=== PATIENT | female | born 1970 | race Hispanic/Latino ===

== ENCOUNTER 2021-04-16 11:34 | Emergency (ER) | payer SELFPAY ==
--- NOTE | ~2021-04-16 | XR_ITS ---
EXAMINATION: XR shoulder LT min 2V DATE: 04/16/2021 12:32 INDICATION: Left shoulder pain. TECHNIQUE: 4 views of left shoulder were obtained. COMPARISON: None. FINDINGS: Bone alignment is normal. No fracture. There is mild osteoarthritis of glenohumeral joint a nd acromioclavicular joint. IMPRESSION: 1. Mild polyarticular osteoarthritis. Reviewed, dictated and finalized at location A.
[2021-04-16 11:53] VITALS: BP 124/74; PULSE 90; RESP 17; TEMP 36.8; O2SAT 98
--- NOTE | 2021-04-16 13:16 | ED.UPPEXIN ---
HPI - Extremity Injury (Upper) General Chief Complaint: Extremity Injury, Upper Stated Complaint: shoulder pain Time Seen by Provider: 04/16/21 12:07 Source: patient and family Mode of arrival: ambulatory Limitations: language barrier History of Present Illness HPI narrative: 50-year-old female here with complaints of left shoulder neck pain for past several months. Patient son who is the educational interpreter tells me that he is she has seen chiropractor several time for the same. She denies any trauma no history of fever or chills complaint: injury to: shoulder Onset (ago): year(s) (1) Other injuries: none Exacerbating factors: movement of extremity Related Data Home Medications Medication Instructions Recorded Confirmed acetaminophen [Tylenol] 04/16/21 04/16/21 Allergies Allergy/AdvReac Type Severity Reaction Status Date / Time No Known Allergies Allergy Unverified 05/20/18 17:58 Review of Systems Review of Systems: All systems reviewed & are unremarkable except as noted in HPI and below Constitutional: Constitutional: Reports no additional constitutional complaints Eyes: Eyes: Reports no additional eye complaints ENT: Reports system reviewed and no additional complaints, except as documented Cardiovascular: Cardiovascular: Reports no additional cardiovascular complaints Respiratory: Respiratory: Reports no additional respiratory complaints Gastrointestinal: Gastrointestinal: Reports no additional gastrointestinal complaints Musculoskeletal: Musculoskeletal: Reports as per HPI Integumentary/Breasts: Skin/Breast: Reports system reviewed and no additional complaints, except as docu Exam Narrative: GENERAL: Well-appearing, well-nourished, and in no acute distress. HEAD: Normocephalic, atraumatic. EYES: PERRLA and EOMI.. NECK: Supple. CHEST: Clear to auscultation. No respiratory distress. HEART: Regular rate and rhythm. No murmur heard. Normal peripheral pulses. EXTREMITIES: pain ful ROM of the left shoulder , no deformity SKIN: Warm, dry, no rash. NEURO: No focal deficits. Alert and oriented x3. PSYCH: Normal mood and affect. Course Course Emergency Course: Inform the son who is the main clinical account specialist about the x-ray findings. Advised her to take pain medications as prescribed., With orthopedic doctor. Vital Signs Vital signs: Vital Signs Temperature 36.8 C 04/16/21 11:53 Pulse Rate 90 04/16/21 11:53 Respiratory Rate 17 04/16/21 11:53 Blood Pressure 124/74 04/16/21 11:53 Pulse Oximetry 98 04/16/21 11:53 Temperature 36.8 C 04/16/21 11:53 Pulse Rate 90 04/16/21 11:53 Respiratory Rate 17 04/16/21 11:53 Blood Pressure 124/74 04/16/21 11:53 Pulse Oximetry 98 04/16/21 11:53 Discharge Plan Discharge Clinical Impression: Arthralgia Qualifiers: Joint pain location: shoulder Laterality: left Qualified Code(s): M25.512 - Pain in left shoulder Patient Disposition: Home, Self-Care Condition: Stable Instructions: Antibiotic Form, Arthritis (ED) Additional Instructions: take medications as presceried , follow with Orthopedics in the next few days. Patient Language: Uzbek Prescriptions: New meloxicam [Mobic] 7.5 mg tablet 7.5 mg PO DAILY Qty: 30 RF: 0 No Action acetaminophen [Tylenol] 325 mg Capsule RF: 0 Follow-up/Referrals: Keyur Slaughter MD [Physician] - PHYSICIAN,PATTERN WORKER [Primary Care Provider] - Time of Disposition: 13:19
[2021-04-16 13:35] VITALS: BP 116/75; PULSE 78; RESP 15; O2SAT 100
== END 2021-04-16 13:36 | disposition home or self-care (01) ==
PROVIDERS: Emergency Provider Family Medicine
DX: M25.512 Pain in left shoulder (principal)
CPT/HCPCS: 73030; 99283

== ENCOUNTER 2022-06-16 20:03 | Emergency (ER) | payer MEDICAID, SELFPAY ==
--- NOTE | ~2022-06-16 | XR_ITS ---
EXAM: XR shoulder LT min 2V DATE: 06/16/2022 20:52 HISTORY: INNJURY/PAIN;worsening Lt shoulder pain; no recent injury . COMPARISON: 04/16/2021. FINDINGS: Decreased mineralization. No fracture or dislocation. No lytic or blastic lesion. Mild AC joint and glenohumeral joint osteoarthritis. No erosion or periosteal change. Soft tissues within nor mal limits. IMPRESSION: No acute osseous finding in the left shoulder. Reviewed, dictated and finalized at location K. COURSE ASSISTANT
--- NOTE | ~2022-06-16 | XR_ITS ---
EXAM: XR_CERV2-3V_CR DATE: 06/16/2022 20:53 HISTORY: left neck pain;worsening Lt shoulder pain, radiating into el . COMPARISON: None available. FINDINGS: Decreased mineralization. Craniocervical association and atlantoaxial joint are aligned. No prevertebral soft tissue swelling. Vertebral bodies are aligned. Vertebral body heights are maintain ed. Mild degenerative disc disease at C5-6. Mild multilevel facet arthropathy. IMPRESSION: No acute fracture or traumatic malalignment detected in the cervical spine. Reviewed, dictated and finalized at location K. IC TANK SETTER IMPRESSION: No acute fracture or traumatic malalignment detected in the cervica l spine.
--- NOTE | ~2022-06-16 | XR_ITS ---
EXAM: XR elbow LT min 3V DATE: 06/16/2022 20:53 HISTORY: pain,worsening Lt shoulder pain, radiating into elbow/neck . COMPARISON: None available. FINDINGS: Decreased mineralization. No fracture or dislocation. No lytic or blastic lesion. Joint sp aces are maintained. No erosion or periosteal change. Soft tissues within normal limits. IMPRESSION: No acute osseous finding in the left elbow. Reviewed, dictated and finalized at location K. IAL TAX AUDITOR
[2022-06-16 20:04] VITALS: BP 149/88; PULSE 86; RESP 18; TEMP 37.2; O2SAT 99
--- NOTE | 2022-06-16 20:28 | ECG_ITS ---
Measurements Intervals [place] Rate: 80 P: 33 ND: 149 QRS: 44 QRSD: 71 T: 57 QT: 365 QTc: 421 Interpretive Statements SINUS RHYTHM NO PREVIOUS ECG AVAILABLE FOR COMPARISON Electronically Signed On 06-17-2022 11:16:16 MANUFACTURING ACCOUNTANT by Génesis Lujan M.D.
--- NOTE | 2022-06-16 20:29 | ED.GENADULT ---
HPI - General Adult General Chief complaint: Extremity Injury, Upper Stated complaint: left shoulder pain Time Seen by Provider: 06/16/22 20:23 History of Present Illness HPI narrative: Patient 51-year-old female who presents emergency department with chief complaint of left shoulder neck and elbow pain. Patient reports that for approximately 2 years she has been having pain in the left side of her neck and left shoulder the patient states it also goes to the elbow. The patient states the pain is worse with range of motion and reports that yesterday at work she lifted something heavy that exacerbated the pain. Related Data Home Medications Medication Instructions Recorded Confirmed acetaminophen 325 mg capsule 04/16/21 04/17/21 (Tylenol) Allergies Allergy/AdvReac Type Severity Reaction Status Date / Time No Known Allergies Allergy Verified 06/16/22 20:08 Review of Systems Review of Systems: A 10 system review of systems was completed on the patient and is negative except for what is stated in the HPI. Nursing and ancillary documentation was reviewed. [facility] Past Medical History Medical History Adhesive capsulitis of left shoulder Social History Social History Smoking status: Never smoker Exam Narrative: GENERAL: Well-appearing, well-nourished, and in no acute distress. HEAD: Normocephalic, atraumatic. EYES: PERRLA and EOMI. ENT: Nares clear, no rhinorrhea or epistaxis. Mucous membranes moist. NECK: Supple. There is tenderness to palpation in the paraspinous muscles of the left neck CHEST: Clear to auscultation. No respiratory distress. HEART: Regular rate and rhythm. No murmur heard. Normal peripheral pulses. ABDOMEN: Soft, nontender, nondistended, normal active bowel sounds. EXTREMITIES: Normal range of motion. No edema. There is tenderness in the left shoulder and pain with range of motion. SKIN: Warm, dry, no rash. NEURO: No focal deficits. Alert and oriented x3. PSYCH: Normal mood and affect. Course Course Emergency Course: EKG is sinus rhythm rate of [address] elevation or ST depression Vital Signs Vital signs: Vital Signs Temperature 37.2 C 06/16/22 20:04 Pulse Rate 86 06/16/22 20:04 Respiratory Rate 18 06/16/22 20:04 Blood Pressure 149/88 H 06/16/22 20:04 Pulse Oximetry 99 06/16/22 20:04 Oxygen Delivery Room Air 06/16/22 20:04 Temperature 37.2 C 06/16/22 20:04 Pulse Rate 86 06/16/22 20:04 Respiratory Rate 18 06/16/22 20:04 Blood Pressure 149/88 H 06/16/22 20:04 Pulse Oximetry 99 06/16/22 20:04 Oxygen Delivery Room Air 06/16/22 20:04 Medical Decision Making Vital Signs Vital Signs: Vital Signs Temperature 37.2 C 06/16/22 20:04 Pulse Rate 86 06/16/22 20:04 Respiratory Rate 18 06/16/22 20:04 Blood Pressure 149/88 H 06/16/22 20:04 Pulse Oximetry 99 06/16/22 20:04 Oxygen Delivery Room Air 06/16/22 20:04 Temperature 37.2 C 06/16/22 20:04 Pulse Rate 86 06/16/22 20:04 Respiratory Rate 18 06/16/22 20:04 Blood Pressure 149/88 H 06/16/22 20:04 Pulse Oximetry 99 06/16/22 20:04 Oxygen Delivery Room Air 06/16/22 20:04 Discharge Plan Discharge Clinical Impression: Acute pain of left shoulder Patient Disposition: Home, Self-Care Condition: Stable Instructions: Antibiotic Form, Shoulder Pain (ED) Patient Language: Uzbek Prescriptions: New meloxicam 15 mg tablet 15 mg PO DAILY Qty: 14 0RF cyclobenzaprine 10 mg tablet 10 mg PO TID PRN (Reason: muscle spasm) Qty: 21 0RF No Action acetaminophen [Tylenol] 325 mg Capsule meloxicam [Mobic] 7.5 mg tablet 7.5 mg PO DAILY Qty: 30 0RF Follow-up/Referrals: PHYSICIAN,DIETARY SERVICE AIDE [Primary Care Provider] - Cruz Ivory MD [Physician] - Time of Disposition: 21:18
[2022-06-16] MEDS: KETOROLAC 30 MG/ML VIAL (*BKC) IM (21:07)
[2022-06-16] MEDS: ORPHENADRINE CITRATE 100 MG TABLET.ER PO (21:08)
== END 2022-06-16 21:34 | disposition home or self-care (01) ==
PROVIDERS: Emergency Provider Emergency Medicine
DX: M25.512 Pain in left shoulder (principal)
CPT/HCPCS: 72040; 73030; 73080; 93005; 96372; 99284; A9270; J1885

== ENCOUNTER 2023-10-27 12:02 | Emergency (ER) | payer OTHER, SELFPAY ==
--- NOTE | ~2023-10-27 | XR_ITS ---
Right Hand Technique: PA, oblique, and lateral views were obtained. Clinical History: Dog bite Findings: No acute fracture or dislocation is seen. Osseous alignment is anatomic. Joint spaces are p reserved. Soft tissues are unremarkable. Impression: Unremarkable right hand. Reviewed, dictated and finalized at location M. Impression: Unremarkable right hand.
[2023-10-27 12:52] VITALS: BP 112/69; PULSE 90; RESP 16; TEMP 35.7; O2SAT 96
--- NOTE | 2023-10-27 15:39 | ED.ANIMALBIT ---
HPI - Animal Bite General Chief Complaint: Animal Bite Stated Complaint: animal bite Time Seen by Provider: 10/27/23 15:40 Source: patient Mode of arrival: EMS Limitations: no limitations and language barrier History of Present Illness HPI narrative: Patient is a 52-year-old female who presents the ED via EMS with report of a dog bite to her right hand. Patient is Sinhala speaking. [id number] interpreter deaf that was utilized for assistance with interpretation. Reports bitten by her neighbor's dog on her R5th digit. States the dog escaped as she was walking by her neighbor's fence. C/o pain to digit and entire R hand. Dogs with unknown vaccination status, however patient states she has seen the dog be territorial and unfriendly in the past. Patient states she filed a police report against the neighbor/dog. Tetanus unknown. Denies any other injuries. Denies numbness. Related Data Home Medications Medication Instructions Recorded Confirmed acetaminophen 325 mg capsule 04/16/21 04/17/21 (Tylenol) Allergies Allergy/AdvReac Type Severity Reaction Status Date / Time No Known Allergies Allergy Verified 06/16/22 20:08 Review of Systems Review of Systems: CONSTITUTIONAL: Denies fever, chills, or sweats. SKIN: See HPI MUSCULOSKELETAL: see HPI NEUROLOGIC: Denies headache, dizziness, numbness, or weakness. All systems reviewed & are unremarkable except as noted in HPI and below PMFSH Past Medical History Medical History Adhesive capsulitis of left shoulder Social History Social History Smoking status: Never smoker Exam Narrative: GENERAL: Well appearing, thin, non-toxic, in no acute distress. HEAD: Normocephalic, atraumatic. RESPIRATORY: Airway patent, respirations nonlabored. CARDIOVASCULAR: Regular rate and rhythm. Radial pulses easily palpable MUSCULOSKELETAL: Moves all extremities. No gross deformities. SKIN: Warm, dry, normal color. Two puncture wounds to R 5th digit extensor surface. 1 puncture wound to flexor surface of digit medially/proximally, no active bleeding. Tenderness surrounding puncture wounds. Mild tenderness noted to 4th digit as well, no appreciable wounds. Sensation intact. Capillary refill <2sec to fingers. NEURO: A&O X3. Speech clear. PSYCHIATRIC: Appropriate mood and affect. Normal interaction. Course Vital Signs Vital signs: Vital Signs Temperature 96.2 F L 10/27/23 12:52 Pulse Rate 90 10/27/23 12:52 Respiratory Rate 16 10/27/23 12:52 Blood Pressure 112/69 10/27/23 12:52 Pulse Oximetry 96 10/27/23 12:52 Temperature 96.2 F L 10/27/23 12:52 Pulse Rate 90 10/27/23 12:52 Respiratory Rate 16 10/27/23 12:52 Blood Pressure 112/69 10/27/23 12:52 Pulse Oximetry 96 10/27/23 12:52 MDM - Animal Bite MDM Narrative Medical decision making narrative: X-ray negative for osseous abnormality, foreign body. Puncture wounds very small, do not require repair. Wounds were thoroughly irrigated and bandaged. Tetanus updated. No indication for rabies vaccine, patient states dog was not acting rabid, escaped out of fence. Patient will be started on abx for dog bite prophylaxis. Given 1st dose of Augmentin in the ED. Will also send in prescription for pain medication. Advised patient have close follow-up with primary care doctor. Will also provide hand surgery information for follow-up if needed. Discussed strict return precautions, including signs and symptoms of infection. Patient voiced understanding. Discharged in stable condition. Given work note. Medical Records Attestation: I reviewed the patient's medical records. Imaging Data Attestation: I personally reviewed and interpreted this imaging study as follows: Radiologist's impression: ITS Impressions Hand X-Ray 10/27/23 12:45 Impression: Unremarkable right hand.
[2023-10-27] MEDS: HYDROcodone/acetaminophen (*CRX) 5-325 MG TABLET 1 TAB PO (16:08)
[2023-10-27] MEDS: AMOXICILLIN/CLAVULANATE K 875-125 MG TAB 1 TABLET PO (16:08)
[2023-10-27] MEDS: TETANUS,DIPHTHERIA,AC PERTUSSIS ADULT (0.5 ML) BOOSTRIX IM (16:08)
== END 2023-10-27 16:55 | disposition home or self-care (01) ==
LOC: ANHED 16:37
PROVIDERS: Emergency Provider Physician Assistant; Referring Provider Emergency Medicine
DX: S61.256A Open bite of right little finger without damage to nail, initial encounter (principal); Z23 Encounter for immunization; W54.0XXA Bitten by dog, initial encounter
CPT/HCPCS: 73130; 90471; 90715; 99283; A9270

== ENCOUNTER 2023-10-31 14:49 | Emergency (ER) | payer OTHER, SELFPAY ==
[2023-10-31 14:51] VITALS: BP 129/75; PULSE 73; RESP 18; TEMP 36.5; O2SAT 99
[2023-10-31 17:23] LABS: Basophils Percent Auto 0.5 % (0.2-1.2); Eosinophils Absolute Auto 0.3 K/mm3 (0-0.3); Eosinophils Percent Auto 4.2 % (0-4.4); Hematocrit 37.8 % (37.0-47.0); Hemoglobin 12.7 g/dL (12.0-15.0); Immature Granulocyte Absolute 0.01 K/mm3 (0.00-0.031); Immature Granulocyte Percent A 0.2 % (0-0.5); Lymphocytes Absolute Auto 1.86 K/mm3 (0.9-3.2); Lymphocytes Percent Auto 31.4 % (18.3-44.2); Mean Corpuscular HGB Conc 33.6 g/dl (32-36); Mean Corpuscular Hemoglobin 30.1 pg (26-34); Mean Corpuscular Volume 89.6 fl (80-100); Mean Platelet Volume 11.8 fl (7.4-10.4); Monocytes Absolute Auto 0.5 K/mm3 (0.1-0.6); Monocytes Percent Auto 8.1 % (2.6-8.5); Neutrophils Absolute Auto 3.3 K/mm3 (1.3-6.7); Neutrophils Percent Auto 55.6 % (45.5-73.1); Platelet Count Result 228 k/mm3 (150-375); Red Blood Count 4.22 M/mm3 (4.2-5.4); Red Cell Distribution Width 12.7 % (11.5-14.5); White Blood Count 5.9 K/mm3 (4.5-10.0)
[2023-10-31 17:35] LABS: Lactic Acid Reflex 1.3 mmol/L (0.7-2.0)
[2023-10-31 17:36] LABS: Anion Gap 5 mmol/L (4-12); Blood Urea Nitrogen 14 mg/dL (7-17); CRP < 0.5 mg/dL (<1.0); Calcium 9.3 mg/dL (8.4-10.2); Carbon Dioxide 30 mmol/L (22-30); Chloride 102 mmol/L (98-107); Estimated Glomerular Filt Rate > 60; Glucose 341 mg/dL (65-110); Potassium 4.3 mmol/L (3.4-5.0); Sodium 137 mmol/L (137-145)
--- NOTE | 2023-10-31 17:41 | ED_ITS ---
HPI - Extremity Injury (Upper) General Chief Complaint: Extremity Injury, Upper Stated Complaint: possible infection to hand after dog bite Time Seen by Provider: 10/31/23 16:57 Source: patient and old records reviewed Mode of arrival: ambulatory Limitations: no limitations and language barrier History of Present Illness HPI narrative: Patient is a 52-year-old female, with pmh of DM, who presents the ED with conc whitney for infection to right hand. Patient is Peruvian-speaking. [employer] human resources operations director was utilized for assistance with translation. Patient was seen in the ED here on Friday for a dog bite of her right 5th digit. She was started on Augmentin at that time and has been taking this as prescribed. She has 3 doses left. She followed up with her primary care doctor today and was concerned for infection, referred here for further evaluation. Patient reports persistent pain in right hand, but denies fevers, drainage, redness, warmth, numbness, tingling. Related Data Home Medications Medication Instructions Recorded Confirmed acetaminophen 325 mg capsule 04/16/21 04/17/21 (Tylenol) Allergies Allergy/AdvReac Type Severity Reaction Status Date / Time No Known Allergies Allergy Verified 06/16/22 20:08 Review of Systems Review of Systems: CONSTITUTIONAL: Denies fever, chills, or sweats. MUSCULOSKELETAL: See HPI. NEUROLOGIC: Denies headache, dizziness, numbness, or weakness. All systems reviewed & are unremarkable except as noted in HPI and below PMFSH Past Medical History Medical History (Updated 10/31/23 @ 17:51 by Lurdes Ridley PA-C) Adhesive capsulitis of left shoulder Diabetes mellitus Social History Social History Smoking status: Never smoker Exam Narrative: GENERAL: Well appearing, thin/petite, non-toxic, in no acute distress. HEAD: Normocephalic, atraumatic. RESPIRATORY: Airway patent, respirations nonlabored. CARDIOVASCULAR: Regular rate and rhythm without murmurs, rubs, or gallops. Radial pulses 2+ MUSCULOSKELETAL: Moves all extremities. No gross deformities. TTP throughout R 4th/5th digits, but no appreciable swelling, warmth, erythema of hand/fingers. No lymphangitis. SKIN: Warm, dry, normal color. Healing scabbed puncture wounds to R 5th digit, no drainage or surrounding inflammation. NEURO: A&O X3. Speech clear. PSYCHIATRIC: Appropriate mood and affect. Normal interaction. Course Vital Signs Vital signs: Vital Signs Temperature 97.7 F 10/31/23 14:51 Pulse Rate 73 10/31/23 14:51 Respiratory Rate 18 10/31/23 14:51 Blood Pressure 129/75 10/31/23 14:51 Pulse Oximetry 99 10/31/23 14:51 Oxygen Delivery Room Air 10/31/23 14:51 Temperature 97.7 F 10/31/23 14:51 Pulse Rate 73 10/31/23 14:51 Respiratory Rate 18 10/31/23 14:51 Blood Pressure 129/75 10/31/23 14:51 Pulse Oximetry 99 10/31/23 14:51 Oxygen Delivery Room Air 10/31/23 14:51 MDM - Extremity Injury (Upper) MDM Narrative Medical decision making narrative: Patient presented to ED several days s/p dog bite to R 5th digit, concerned for infection, on augmentin, has 3 doses left. Vitals are stable. Patient afebrile. No systemic signs of infection. Laboratory studies were obtained and reassuring. No leukocytosis. Normal inflammatory markers. Lactic acid within normal limits. Blood glucose is moderately elevated. Patient has been adjusting DM medications with PCP. Hand overall looks well, I am not concerned for infection, do not feel patient needs IV antibiotics. Advised patient to continue oral antibiotics and have continued follow-up with primary care doctor. She has a follow-up appointment on Friday. Advised patient to continue Tylenol and ibuprofen as needed for pain. Patient was also referred to Hand surgery and advised patient to make appointment if she has further concerns. Given return precautions. Discharged in stable condition. Medical Records Attestation: I reviewed the patient's medical records. Lab Data Attestation: I reviewed the patient's lab results. 10/31/23 17:17 10/31/23 17:17 Labs: Lab Results 10/31/23 Range/Units 17:17 WBC 5.9 (4.5-10.0) K/mm3 RBC 4.22 (4.2-5.4) M/mm3 Hgb 12.7 (12.0-15.0) g/dL Hct 37.8 (37.0-47.0) % MCV 89.6 (80-100) fl MCH 30.1 (26-34) pg MCHC 33.6 (32-36) g/dl RDW 12.7 (11.5-14.5) % Plt Count 228 (150-375) k/mm3 MPV 11.8 H (7.4-10.4) fl Immature Gran % (Auto) 0.2 (0-0.5) % Neut % (Auto) 55.6 (45.5-73.1) % Lymph % (Auto) 31.4 (18.3-44.2) % [place] % (Auto) 8.1 (2.6-8.5) % Eos % (Auto) 4.2 (0-4.4) % Baso % (Auto) 0.5 (0.2-1.2) % Lymph # (Auto) 1.86 (0.9-3.2) K/mm3 [place] # (Auto) 0.5 (0.1-0.6) K/mm3 Eos # (Auto) 0.3 (0-0.3) K/mm3 Baso # (Auto) 0.0 (0.0-0.1) K/mm3 Abs Immat Gran (auto) 0.01 (0.00-0.031) K/mm3 Absolute Neuts (auto) 3.3 (1.3-6.7) K/mm3 Absolute Nucleated RBC 0.000 (0.0-0.012) K/mm3 Nucleated RBC % 0.0 (0.0-0.2) % ESR 14 (0-20) mm/hr Sodium 137 (137-145) mmol/L Potassium 4.3 (3.4-5.0) mmol/L Chloride 102 (98-107) mmol/L Carbon Dioxide 30 (22-30) mmol/L Anion Gap 5 (4-12) mmol/L BUN 14 (7-17) mg/dL Creatinine 0.40 L (0.7-1.0) mg/dL Estim Creat Clear Calc Not Reportable Estimated GFR > 60 (59 - ) Glucose 341 H (65-110) mg/dL Lactic Acid 1.3 (0.7-2.0) mmol/L Calcium 9.3 (8.4-10.2) mg/dL C-Reactive Protein < 0.5 (<1.0) mg/dL Discharge Plan Discharge Clinical Impression: Dog bite of multiple sites of right hand and fingers Qualifiers: Encounter type: subsequent encounter Qualified Code(s): S61.451D - Open bite of right hand, subsequent encounter Uncontrolled diabetes mellitus Qualifiers: Diabetes mellitus type: type 2 Glycemic state: with hyperglycemia Qualified Code(s): E11.65 - Type 2 diabetes mellitus with hyperglycemia Patient Disposition: Home, Self-Care Condition: Stable Instructions: Antibiotic Form, Animal Bite (ED), Type 2 Diabetes Management for Adults (ED) Additional Instructions: Finish your antibiotics as prescribed. Continue Tylenol and ibuprofen for pain. Continue to follow-up with your primary care doctor. You have also been referred to Hand surgery and you may call the office to make an appointment. Continue your diabetic medications as prescribed. Return to the ED if you experience severe pain or swelling in hands, drainage from finger, persistent fevers, or any other symptoms of concern. Prescriptions: No Action acetaminophen [Tylenol] 325 mg Capsule meloxicam [Mobic] 7.5 mg tablet 7.5 mg PO DAILY Qty: 30 0RF meloxicam 15 mg tablet 15 mg PO DAILY Qty: 14 0RF cyclobenzaprine 10 mg tablet 10 mg PO TID PRN (Reason: muscle spasm) Qty: 21 0RF amoxicillin-pot clavulanate 875-125 mg tablet 1 tablet PO Q12H 7 Days Qty: 14 0RF hydrocodone-acetaminophen 5-325 mg tablet 1 tablet PO Q6H PRN (Reason: pain) Qty: 5 0RF Follow-up/Referrals: Adarsh Good MD [Physician] - (HAND SURGERY) UNKNOWN,DOCTOR [Primary Care Provider] - Time of Disposition: 17:50
[2023-10-31 18:02] LABS: Erythrocyte Sedimentation Rate 14 mm/hr (0-20)
== END 2023-10-31 18:11 | disposition home or self-care (01) ==
PROVIDERS: Emergency Provider Physician Assistant
DX: S61.451D Open bite of right hand, subsequent encounter (principal); E11.65 Type 2 diabetes mellitus with hyperglycemia; W54.0XXD Bitten by dog, subsequent encounter
CPT/HCPCS: 36415; 80048; 83605; 85025; 85652; 86140; 99283

== ENCOUNTER 2023-11-09 11:01 | Emergency (ER) | payer OTHER, SELFPAY ==
--- NOTE | ~2023-11-09 | XR_ITS ---
XR shoulder RT min 2V DATE: 11/09/2023 11:56 INDICATION: Right shoulder pain following dog bite 2 weeks ago TECHNIQUE: 4 views COMPARISON: None FINDINGS: No fracture or dislocation, periosteal reaction or bone destruction. Mild degenerative velazco ge at the right acromioclavicular joint. IMPRESSION: No fracture or dislocation Mild degenerative change at right acromioclavicular joint Reviewed, dictated and finalized at location A.
--- NOTE | ~2023-11-09 | XR_ITS ---
XR cervical spine 4-5V DATE: 11/09/2023 11:56 INDICATION: Right neck pain TECHNIQUE: AP, open-mouth, lateral, swimmer views COMPARISON: 06/16/2022 cervical spine FINDINGS: There is straightening of the cervical spine. C1 and C2 are normally aligned and the odontoid process is intact. No fracture or dislocation or lock ed facet or prevertebral soft tissue swelling. Cervical interspaces appear well preserved. IMPRESSION: No significant abnormality Reviewed, dictated and finalized at location A. IMPRESSION: No significant abnormality
[2023-11-09 11:06] VITALS: BP 125/76; PULSE 80; RESP 18; TEMP 36.4; O2SAT 99
--- NOTE | 2023-11-09 11:39 | ED.ANIMALBIT ---
HPI - Animal Bite General Chief Complaint: Animal Bite Stated Complaint: labs and imaging request Time Seen by Provider: 11/09/23 11:03 Source: patient Mode of arrival: ambulatory Limitations: no limitations History of Present Illness HPI narrative: Patient is a 52-year-old female who presents to the ED with report of right-sided neck and arm arm pain. Patient is primarily Syrian-speaking. Jiglu interpreter and translator utilized for assistance with translation. Patient reports she was bit by a dog in her right hand a few weeks ago. She has been seen in the ED several times for this incident. She complains of persistent pain throughout her right arm, right shoulder, right neck. States she feels as though she strain her arm trying to fight off the dog. She states she was sent here by her PCP today to have labs and imaging performed. She presents with outpatient lab and x-ray orders. Patient denies numbness or tingling. Denies chest pain or shortness of breath. She has not been taking anything for the pain. Related Data Home Medications Medication Instructions Recorded Confirmed acetaminophen 325 mg capsule 04/16/21 04/17/21 (Tylenol) Allergies Allergy/AdvReac Type Severity Reaction Status Date / Time No Known Allergies Allergy Verified 06/16/22 20:08 Review of Systems Review of Systems: CONSTITUTIONAL: Denies fever, chills, or sweats. CARDIOVASCULAR: Denies chest prasad. RESPIRATORY: Denies dyspnea. MUSCULOSKELETAL: See HPI. NEUROLOGIC: Denies headache, dizziness, numbness, or weakness. All systems reviewed & are unremarkable except as noted in HPI and below PMFSH Past Medical History Medical History Adhesive capsulitis of left shoulder Diabetes mellitus Social History Social History Smoking status: Never smoker Exam Narrative: GENERAL: Well appearing, thin, non-toxic, in no acute distress. HEAD: Normocephalic, atraumatic. NECK: No midline spinal tenderness. Minimal TTP to R paraspinal musculature into right upper trapezius region. Neck is supple, full range of motion. RESPIRATORY: Airway patent, respirations nonlabored. CARDIOVASCULAR: Regular rate and rhythm without murmurs, rubs, or gallops. Radial pulses 2+ MUSCULOSKELETAL: Moves all extremities. No gross deformities. Full range of motion of upper extremities bilaterally. Sensation intact throughout upper extremities. No appreciable tenderness throughout R shoulder joint, R upper arm, R forearm. Minimal tenderness over the 5th MCP region in area of previous dog bite. SKIN: Warm, dry, normal color. NEURO: A&O X3. Speech clear. Cranial nerves II-XII grossly intact. Steady gait. No ataxic movements. PSYCHIATRIC: Appropriate mood and affect. Normal interaction. Course Vital Signs Vital signs: Vital Signs Temperature 97.6 F 11/09/23 11:06 Pulse Rate 80 11/09/23 11:06 Respiratory Rate 18 11/09/23 11:06 Blood Pressure 125/76 11/09/23 11:06 Pulse Oximetry 99 11/09/23 11:06 Oxygen Delivery Room Air 11/09/23 11:06 Temperature 97.6 F 11/09/23 11:06 Pulse Rate 80 11/09/23 11:06 Respiratory Rate 18 11/09/23 11:06 Blood Pressure 125/76 11/09/23 11:06 Pulse Oximetry 99 11/09/23 11:06 Oxygen Delivery Room Air 11/09/23 11:06 MDM - Animal Bite MDM Narrative Medical decision making narrative: Patient presented to ED with right-sided neck/shoulder/arm pain status post dog bite a few weeks ago. Vital signs are stable. Neurologically intact. No significant abnormalities noted on exam. Paraspinal muscle tenderness noted throughout right cervical region. No midline spinal tenderness. Patient states she was sent here to obtain lab and imaging by her PCP, presents with outpatient lab and imaging ordered sheets. Patient was advised to go to the outpatient lab at the front of the hospital
[2023-11-09] MEDS: ACETAMINOPHEN 500 MG TABLET 1000 MG PO (12:00)
[2023-11-09] MEDS: KETOROLAC (*BKC) 60 MG/2 ML VIAL IM (12:01)
== END 2023-11-09 12:34 | disposition home or self-care (01) ==
PROVIDERS: Emergency Provider Physician Assistant
DX: S16.1XXA Strain of muscle, fascia and tendon at neck level, initial encounter (principal); S46.911A Strain of unspecified muscle, fascia and tendon at shoulder and upper arm level, right arm, initial encounter; E11.9 Type 2 diabetes mellitus without complications; X58.XXXA Exposure to other specified factors, initial encounter
CPT/HCPCS: 72050; 73030; 96372; 99284; A9270; J1885

== ENCOUNTER 2023-11-24 07:45 | Outpatient (CLI) | payer OTHER, SELFPAY ==
[2023-11-24 09:08] LABS: Cholesterol 164 mg/dL (0-200); HDL Direct 59 mg/dL; Triglycerides 126 mg/dL (<150)
[2023-11-24 09:19] LABS: LDL Cholesterol Direct 96 mg/dL
[2023-11-24 09:21] LABS: Erythrocyte Sedimentation Rate 14 mm/hr (0-20)
[2023-11-24 09:21] LABS: Creatinine Urine 52.9 mg/dL
[2023-11-24 09:37] LABS: Thyroid Stimulating Hormone 0.523 uIU/mL (0.465-4.680)
[2023-11-24 09:47] LABS: Free T4 Free Thyroxine 1.73 ng/mL (0.78-2.19); Vitamin D 25 Hydroxy 28.2 ng/mL
[2023-11-24 10:36] LABS: MALB Creatinine Ratio < 11.3 mg/g (0-30); Microalbumin Urine Random < 6.0 mg/L (0-16.7)
[2023-11-24 11:06] LABS: Rheumatoid Factor < 12.0 IU/ML (<12)
[2023-11-24 13:37] LABS: Hemoglobin A1C 10.7 % (<5.7)
== END 2023-11-24 07:46 | disposition home or self-care (01) ==
LOC: ANHLAB 07:49
PROVIDERS: PCP Emergency Medicine; Visit Provider Emergency Medicine
DX: Z00.00 Encounter for general adult medical examination without abnormal findings (principal); E11.9 Type 2 diabetes mellitus without complications; K21.00 Gastro-esophageal reflux disease with esophagitis, without bleeding; M54.2 Cervicalgia; M25.511 Pain in right shoulder
CPT/HCPCS: 36415; 80061; 82043; 82306; 83036; 84439; 84443; 85652; 86038; 86430

== ENCOUNTER 2024-01-02 14:01 | Outpatient (CLI) | payer OTHER, SELFPAY ==
--- NOTE | ~2024-01-02 | US_ITS ---
EXAMINATION: US art doppler w press UE BI DATE: 01/02/2024 15:02 INDICATION: Right upper limb pain. TECHNIQUE: Segmental pressures and plethysmographic and Doppler waveforms of the upper extremity ammon praveen were obtained. COMPARISON: None. FINDINGS: Right and left brachial artery pressures of 134 mm Hg and 120 mm Hg, respectively, are concordant (no rmal difference <= 30 mmHg). The right finger:brachial systolic pressure ratio is 0.84 (normal > 0.8) . Segmental pressure gradients are normal. Arterial Doppler waveforms demonstrate normal upstroke (no rmal upstroke < 0.2 s). The left finger:brachial systolic pressure ratio is 0.94. Segmental pressure gradients are normal. Ar terial Doppler waveforms demonstrate normal upstroke. IMPRESSION: 1. No significant arterial occlusive disease. Reviewed, dictated and finalized at location E.
== END 2024-01-02 14:02 | disposition home or self-care (01) ==
LOC: ANHIMG 14:06
PROVIDERS: PCP Emergency Medicine; Visit Provider Emergency Medicine
DX: M79.601 Pain in right arm (principal)
CPT/HCPCS: 93923

== ENCOUNTER 2024-01-05 19:34 | Emergency (ER) | payer OTHER, SELFPAY ==
--- NOTE | ~2024-01-05 | XR_ITS ---
Right Hand Technique: PA, oblique, and lateral views were obtained. Clinical History: Pain COMPARISON: 10/27/2023 Findings: No acute fracture or dislocation is seen. Osseous alignment is anatomic. Joint spaces are p reserved. Soft tissues are unremarkable. Impression: Unremarkable right hand. Reviewed, dictated and finalized at location . Impression: Unremarkable right hand.
[2024-01-05 20:04] VITALS: BP 127/74; PULSE 85; RESP 16; TEMP 36.6; O2SAT 99
--- NOTE | 2024-01-06 | ED.EXTPRO ---
HPI - Extremity Problem General Chief complaint: Extremity Problem,Nontraumatic Stated complaint: arm pain Time Seen by Provider: 01/05/24 23:45 Source: patient Mode of arrival: ambulatory Limitations: language barrier (Romansh speaking; chief development officer services [place] #[id number]) History of Present Illness HPI Narrative: Right hand dominant female presents with complaint of right hand and right arm pain. She has experienced pain ever since she bitten by a dog in October of 2023 for which she presented here. For this injury she had been course of antibiotics. She states she asked her PCP Donta Guerrero for another round but was not prescribed them and has been without for a month. Has not been taking anything for pain. No fevers. Intermittently experiences paresthesias and has pain with flexion of her hand, sometimes radiating into her forearm and proximal arm. Patient is also frustrated because she feels the wound care physician of the dog should be paying her hospital bills. She states she gave her neighbors address initially because of this but thinks they are just throwing them away and now she is being told that she should have had the bills sent to her and tried legal measures to get them to pay. Related Data Home Medications Medication Instructions Recorded Confirmed acetaminophen 325 mg capsule 04/16/21 04/17/21 (Tylenol) Allergies Allergy/AdvReac Type Severity Reaction Status Date / Time No Known Allergies Allergy Verified 01/05/24 20:07 [facility] Past Medical History Medical History Adhesive capsulitis of left shoulder Diabetes mellitus History of dog bite October 2023 Right hand dominant Social History Social History Smoking status: Never smoker Exam Narrative: GENERAL: Well-appearing, well-nourished, and in no acute distress. HEAD: Normocephalic, atraumatic. EYES: Non injected, non icteric ENT: Nares clear, no rhinorrhea or epistaxis. NECK: Supple. CHEST: Speaking in full sentences. No respiratory distress. HEART: Regular rate and rhythm. ABDOMEN: Soft, nondistended. EXTREMITIES: No edema. 2+ radial pulse on the right. SKIN: Warm, dry, no rash. NEURO: No focal deficits. Alert and oriented x3. Sensation intact throughout right arm and hand/fingers. Patient does have some pain and limitations with full range of motion, particularly full flexion. Extension intact. PSYCH: Normal mood and affect. Course Vital Signs Vital signs: Vital Signs Temperature 97.9 F 01/05/24 20:04 Pulse Rate 85 01/05/24 20:04 Respiratory Rate 16 01/05/24 20:04 Blood Pressure 127/74 01/05/24 20:04 Pulse Oximetry 99 01/05/24 20:04 Oxygen Delivery Room Air 01/05/24 20:04 Temperature 97.9 F 01/05/24 20:04 Pulse Rate 72 01/06/24 00:51 Respiratory Rate 18 01/06/24 00:51 Blood Pressure 110/73 01/06/24 00:51 Pulse Oximetry 100 01/06/24 00:51 Oxygen Delivery Room Air 01/05/24 20:04 MDM - Extremity (Nontraumatic) MDM Narrative Medical decision making narrative: Right hand dominant female presents with persistent pain and problems after a dog bite October 2023. She was seen in the ED then as well as again later for sequelae of this injury. In the emergency department they are afebrile with vital signs within normal limits. patient given analgesic medication and will repeat imaging with request for radiologist to compare to prior study. no acute process. The patient discharged in stable condition and advised to follow-up and take analgesic medications in the interim which are prescribed. Imaging Data Radiologist's impression: Stat Rad Xray right hand 3 views compared to prior 10/27/23. No definite acute osseous finding. Impression Unremarkable right hand. Discharge Plan Discharge Clinical Impression: Hand pain, left, Bitten by dog, subsequent encounter Patie
[2024-01-06] MEDS: HYDROcodone/acetaminophen (*CRX) 5-325 MG TABLET 1 TAB PO (00:32)
[2024-01-06 00:51] VITALS: BP 110/73; PULSE 72; RESP 18; O2SAT 100
== END 2024-01-06 03:02 | disposition home or self-care (01) ==
PROVIDERS: Emergency Provider Student in an Organized Health Care Education/Training Program; PCP Emergency Medicine
DX: M79.642 Pain in left hand (principal); E11.9 Type 2 diabetes mellitus without complications; W54.0XXA Bitten by dog, initial encounter
CPT/HCPCS: 73130; 99283; A9270

== ENCOUNTER 2025-05-06 08:35 | Outpatient (CLI) | payer OTHER, SELFPAY ==
--- NOTE | ~2025-05-06 | CT_ITS ---
EXAMINATION: CT pelvis wo con COMPARISON: None HISTORY: R10.32 - Left lower quadrant pain TECHNIQUE: Axial images were obtained without IV contrast. Sagittal, coronal reconstruction images were obtained from the axial views. CT scan performed using dose optimization techniques including the following automated exposure control; adjustment of mA and/or kV; use of iterative reconstruction technique. Automatic exposure control was used to reduce radiation dose. Permanent radiation dose record is archived to PACS. FINDINGS: The soft tissues are unremarkable. No sclerotic or lytic lesions. No aneurysm or lymphadenopathy. The bladder appears unremarkable. There is no adnexal mass identified. No free fluid. Moderate fecal content, no colitis or diverticulitis. The visualized small bowel and mesentery are unremarkable. The appendix is unremarkable. IMPRESSION: No etiology to explain left lower quadrant pain Reviewed, dictated and finalized at location P.
--- OUTSIDE RECORDS SUMMARY | 2025-05-06 08:41 | XMS_ITS | Clinical Summary ---
Author Organization [facility] Address [address] [place] [id number] Care Team Providers Care Want Ad Clerk Name Role Phone Lisa Guerrero Primary Care Provider + Encounters Date Type Department Care Team Description 02/11/2025 9:54 AM CDT - 02/11/2025 11:59 PM CDT Hospital Encounter [address] [address] Inguinal bulge Discharge Disposition: Discharge to home or self care from Last 3 Months Social History Tobacco Use Types Packs/Day Years Used Date Smoking Tobacco: Never Assessed Comments Unknown Sex and Gender Information Value Date Recorded Sex Assigned at Not on file Legal Sex Female 12:38 PM CDT Gender Identity Not on file Sexual Orientation Not on file Plan of Treatment Health Maintenance Due Date Last Done Comments Breast Cancer Screening-Mammogram 1970 Cervical Cancer Screening 1970 Colon Cancer Screening-Colonoscopy 1970 Depression Screening 1970 Hepatitis C Screening 1970 Hepatitis B Screening 1988 Regular Well Visit/Exam 18-64 1988 Zoster Vaccine (1 of 2) 2020 Covid-19 Vaccine ( - 2024-2 6 season) 2025 07/13/2021, 11/06/2020, 10/16/2020 Influenza Vaccine (#1) 2025 DTaP/Tdap/Td Vaccine (2 - Td or Tdap) 10/26/2033 10/27/2023 Pneumococcal vaccine <65 Aged Out 04/05/2022 No longer eligible based on patient's age to complete this topic Procedures Procedure Name Priority Date/Time Associated Diagnosis Comments US PELVIS LIMITED Schedule Routine, Read Routine (OP Routine) 02/11/2025 10:31 AM CDT Inguinal bulge from Last 3 Months Results * US Pelvis Limited (02/11/2025 10:31 AM CDT) Anatomical Region Laterality Modality Pelvis N/A Ultrasound 03/02/2025 10:4 7 AM CDT Narrative 03/02/2025 10:55 AM CDT EXAM DESCRIPTION: US PELVIS LIMITED REASON FOR STUDY: R19.09 Left inguinal bulge TECHNIQUE: A Dynamic assessment was performed of the left inguinal region by the warehouseman, with selected grayscale and color Doppler images acquired and recorded in PACS. COMPARISON: None FINDINGS: SKIN AND SUBCUTANEOUS TISSUES: No masses. No fluid collections. No edema. No foreign bodies. DEEP SOFT TISSUES/MUSCLES: No masses. No fluid collections. No edema. OTHER: No other significant finding. IMPRESSION: No soft tissue mass, fluid collection, or foreign body. THIS IS AN ELECTRONICALLY VERIFIED FINAL REPORT 03/02/2025 10:55 AM - Electronically signed by Rigo PRETTY T: Report ID: [id number] Reading Location: [id number] Procedure Note Rigo Liu MD - 03/02/2025 EXAM DESCRIPTION: US PELVIS LIMITED REASON FOR STUDY: R19.09 Left inguinal bulge TECHNIQUE: A Dynamic assessment was performed of the left inguinal regionby the warehouseman, with selected grayscale and color Doppler images acquiredand recorded in PACS. COMPARISON: None FINDINGS: SKIN AND SUBCUTANEOUS TISSUES: No masses. No fluidcollections. No edema. No foreign bodies. DEEP SOFT TISSUES/MUSCLES: No masses. No fluid collections. No edema. OTHER: No other significant finding. IMPRESSION: No soft tissue mass, fluid collection, or foreign body. THIS IS AN ELECTRONICALLY VERIFIED FINAL REPORT 03/02/2025 10:55 AM - Electronically signed by Rigo PRETTY T: Report ID: [id number] Reading Location: [id number] Lisa LAW IMG PROCEDURES Final Result from Last 3 Months Insurance [facility] Care Teams Want Ad Clerk Relationship Specialty Start Date End Date Lisa Guerrero PA [address] [place] [id number] PCP - General Physician Senior Principal Architect 02/21/25
--- OUTSIDE RECORDS SUMMARY | 2025-05-06 08:41 | XMS_ITS | Encounter Summary ---
Author Organization [facility] Address [address] [place] [address] Care Team Providers Care Homebound Teacher Name Role Phone Jadyn Ferreira PA-C Primary Care Provider +1- [phone] Encounter Details Date Type Department Care Team (Late st Contact Info) Description 11/06/2018 Ophth Exam [facility] [address] [place] [address] Julia Bustos MD [address] [facility] [address] DEPT OF OPHTHALMOLOGY [place], [place] Social History Tobacco Use Types Packs/Day Years Used Date Smoking Tobacco: Never Smokeless Tobacco: Never Alcohol Use Standard Drinks/Week Comments No 0 (1 standard drink = 0.6 oz pur e alcohol) Comments No Sex and Gender Information Value Date Recorded Sex Assigned at Not on file 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
--- OUTSIDE RECORDS SUMMARY | 2025-05-06 08:41 | XMS_ITS | Clinical Summary ---
Author Organization [facility] Address [address] [place] [address] Care Team Providers Care Engineering Mathematician Name Role Phone Jadyn Ferreira PA-C Primary Care Provider [phone]- [phone] Source Comments [facility],non-owned Affiliates and Associated Physician Practices is amultiple site organization consisting of ambulatory clinics and hospital sitesin [place], [place], [place] and [place]. This disclosure is being madepursuant to the Care Everywhere program and may not contain all information available regarding this patient. Last updated 18.[facility] [employer] Allergies No known active allergies Medications * Be aware that medications may not be up to date on this document. Alwaysverify current medications with the patient. SITagliptin (JANUVIA) 50 MG tabletIndicati ons:Type 2 diabetes mellitus with complication, with long-term current use of insulin (HCC) Take 50 mg by mouth once daily Active pioglitazone (ACTOS) 30 MG tabletIndicati ons:Type 2 diabetes mellitus without complication, without long-term current use of insulin (HCC) Take 1 tablet by mouth once daily 90 tablet 3 8 Active metFORMIN (GLUCOPHAGE) 1000 MG tabletIndicati ons:Type 2 diabetes mellitus without complication, without long-term current use of insulin (HCC) Take 1 tablet by mouth 2 times daily with morning and evening meal 180 tablet 3 8 Active Blood Glucose Monitoring Suppl (ONETOUCH VERIO) W/DEVICE KITIndications :Type 2 diabetes mellitus without complication, without long-term current use of insulin (HCC) Use 1 kit as directed Can substitute 1 kit 8 Active blood glucose (ONETOUCH VERIO) test stripIndicatio ns:Type 2 diabetes mellitus without complication, without long-term current use of insulin (HCC) Use 1 strip 2 times daily Can substitute 100 strip 11 8 Active ONETOUCH DELICA LANCETS 33G MISCIndication s:Type 2 diabetes mellitus without complication, without long-term current use of insulin ([facility]) Use 1 Each as directed Can substitute 100 Each 11 8 Active rizatriptan (MAXALT) 10 MG tablet Take 10 mg by mouth once daily Active SUMAtriptan (IMITREX) 50 MG tablet Take 50 mg by mouth once daily Active acetaminophen (TYLENOL) 325 MG tablet Take 2 tablets by mouth every 6 hours as needed for Pain Maximum allowable Acetaminophen amount = 4 Grams (4000 mg) / 24 hours. 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 Gender Identity Not on file Sexual Orientation Not on file Last Filed Vital Signs Vital Sign Reading Time Taken Comments Blood Pressure 102/71 11/06/2018 7:30 AM CDT Pulse 76 11/06/2018 2:12 AM CDT Temperature 36.4 C (97.5 F) 11/06/2018 2:12 AM CDT Respiratory Rate 18 11/06/2018 2:12 AM CDT Oxygen Saturation 100% 11/06/2018 2:12 AM CDT Inhaled Oxygen Concentration - - Weight 44.5 kg (98 lb) 11/06/2018 2:12 AM CDT Height 144.8 cm (4' 9) 11/06/2018 2:12 AM CDT Body Mass Index 21.21 11/06/2018 2:12 AM CDT Plan of Treatment Health Maintenance Due Date Last Done Comments COLOGUARD (AGES 45-75) - COLON CA SCREENING 1970 COLON MONITORING 1970 COLONOSCOPY - COLON CA SCREENING 1970 CT COLONOGRAPHY - COLON CA SCREENING 1970 Colorectal Cancer Screening 1970 FIT - COLON CA SCREENING 1970 FLEX SIG - COLON CA SCREENING 1970 MAMMOGRAM 1970 HIV SCREENING 1985 HEPATITIS C SCREENING 11/13/1988 DTAP/TDAP/TD VACCINES (1 - Tdap) 1989 HEPATITIS B VACCINE (1 of 3 - 19+ 3-dose series) 1989 PNEUMOCOCCAL VACCINE 50+ (1 of 2 - PCV) 1989 PAP SMEAR 11/19/1991 DIABETES-STATIN 2010 DIABETES-HGB A1C 07/02/2018 04/02/2018 DIABETES-SERUM CREATININE 04/02/2019 04/02/2018 DIABETES-FOOT EXAM WITH MONOFILAMENT 04/09/2019 04/09/2018, 04/09/2018 ZOSTER VACCINE (1 of 2) 2020 DIABETES RETINOPATHY SCREENING 12/03/2020 12/03/2018, 12/03/2018, 11/06/2018, Additional history exists DEPRESSION SCREENING 07/14/2024 DIABETES - URINE PROTEIN SCREENING 07/14/2024 COVID-19 VACCINE ( season) 2025 INFLUENZA VACCINE (#1) 2025 HIB VACCINE Aged Out No longer eligi ble based on patient's age to complete this topic HPV VACCINE Aged Out No longer eligi ble based on patient's age to complete this topic MENINGOCOCCAL (Group B) VACCINE SHARED DECISION-MAKING Aged Out No longer eligible based on patient's age to complete this topic MENINGOCOCCAL GROUPS A/C/Y/W VACCINE Aged Out No longer eligible based on patient's age to complete this topic Procedures Procedure Name Priority Date/Time Associated Diagnosis Comments BASIC METABOLIC PANEL (CALCIUM TOTAL) Routine 04/02/2018 11:58 AM CDT Type 2 diabetes mellitus with complication, with long-term current use of insulin HEMOGLOBIN A1C - POINT OF CARE (AMB) Routine 04/02/2018 Type 2 diabetes mellitus with complication, with long-term current use of insulin from Last 3 Months or Most Recently Relevant to Health Maintenance Results * (ABNORMAL) BASIC METABOLIC PANEL (CALCIUM TOTAL) (04/02/2018 11:58 AM CDT) BUN 16 7 - 26 mg/dL 04/02/2018 12:54 PM [facility] Creatinine 0.6 0.6 - 1.2 mg/dL 04/02/2018 12:54 PM [facility] Sodium 138 136 - 145 mmol/L 04/02/2018 12:54 PM [facility] Potassium 4.0 3.5 - 4.5 mmol/L 04/02/2018 12:54 PM [facility] Chloride 106 98 - 107 mmol/L 04/02/2018 12:54 PM [facility] CO2 25 22 - 29 mmol/L 04/02/2018 12:54 PM [facility] Glucose 130(H) 70 - 115 mg/dL 04/02/2018 12:54 PM [facility] Calcium 8.8 8.4 - 10.2 mg/dL 04/02/2018 12:54 PM [facility] Anion Gap 11 8 - 18 04/02/2018 12:54 PM [facility] BUN/Creatinine Ratio 27(H) 7 - 23 04/02/2018 12:54 PM [facility] Osmolality Calculated 289 270 - 300 mOsm/kg 04/02/2018 12:54 PM [facility] eGFR >60 >60 mL/min/1.7 3 m2 04/02/2018 12:54 PM [facility] Blood BLOOD SPECIMEN / Unknown Lab Venipuncture / Unknown 04/02/2018 11:58 AM CDT 04/02/2018 12:15 PM T us Terry Bellamy MD LAB - CHEMISTRY ORDERABLES Final Result [facility] [address] [place] [address] * HEMOGLOBIN A1C - POINT OF CARE (AMB) (04/02/2018) Hemoglobin A1c POCT 9.4 % QC Verified Yes Blood BLOOD SPECIMEN / Unknown 04/02/2018 Terry Bellamy MD LAB - POINT OF CARE ORDERABLES F inal Result from Last 3 Months or Most Recently Relevant to Health Maintenance Insurance [employer] Care Teams Engineering Mathematician Relationship Specialty Start Date End Date Jadyn Ferreira PA-C PCP - General 01/26/18
== END 2025-05-06 08:36 | disposition home or self-care (01) ==
PROVIDERS: PCP Emergency Medicine; Visit Provider Surgery
DX: R10.32 Left lower quadrant pain (principal)
CPT/HCPCS: 72192

== ENCOUNTER 2025-05-08 10:00 | Emergency (ER) | payer BC, SELFPAY ==
[2025-05-08 10:08] VITALS: BP 140/69; PULSE 103; RESP 18; TEMP 36.6; O2SAT 99
--- NOTE | 2025-05-08 10:34 | ED_ITS ---
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 Patient reports that she has no foreign body sensation, no change in her vision. Patient reports that she has had past history of cataract surgery to bilateral eyes. Patient does not wear contact or glasses. Patient reports some increased watering from her eyes with some redness to sclera. Patient reports no crusting from eyes in the morning. Has not tried any OTC medication for discomfort or any OTC eye drops. MD chief complaint: eye pain (right) and other (itchy) Onset (ago): day(s) (3 days) Onset description: gradual Location: right eye Eye Symptoms: redness (right eye), pain, itching and other (increased watering) Severity: moderate Severity scale (1-10): 7 If Pain, Quality: sharp and throbbing Treatments Prior to Arrival: none Related Data Home Medications ?Medication ?Instructions ?Recorded ?Confirmed ?Last Taken ?Type dulaglutide 1.5 mg/0.5 mL mg subcut 05/08/25 Unknown History subcutaneous pen injector (Trulicity) lisinopril 5 mg tablet mg 05/08/25 Unknown History metformin 500 mg tablet mg 05/08/25 Unknown History Allergies Allergy/AdvReac Type Severity Reaction Status Date / Time No Known Allergies Allergy Verified 05/08/25 10:03 Review of Systems Review of Systems: CONSTITUTIONAL: Denies fever, chills, or sweats. EYES: Denies visual changes. Reports redness,, irritation, itching, discomfort,swelling along lower right eyelid with some white discharge noted this morning no crustiness from eyes. ENT: Denies rhinorrhea, congestion, sore throat, or otalgia. CARDIOVASCULAR: Denies chest pain, palpitations, or edema. RESPIRATORY: Denies cough or dyspnea. SKIN: Denies rash or itching. NEUROLOGIC: Denies headache All systems reviewed & are unremarkable except as noted in HPI and below PMFSH Past Medical History Medical History (Updated 05/08/25 @ 16:34 by Fe Olmos APRN) Hypertension Right hand dominant History of dog bite October 2023 Diabetes mellitus Adhesive capsulitis of left shoulder Surgical History Surgical History History of cataract surgery bilateral Social History Social History Smoking status: Never smoker Comments At time of signature, agree with nursing past medical, surgical, social and family history. There is no relevant family history pertinent to the presenting complaint Exam Narrative: GENERAL: Well-appearing, well-nourished, and in no acute distress. HEAD: Normocephalic, atraumatic. EYES: PERRLA and EOMI. Upper eyelids unremarkable and left lower eyelid unremarkable, right lower eyelid has some redness with small raised area no conjunctival redness some sclera redness noted, no drainage noted from her right eye a his time. No periorbital cellulitis noted.Right eye sclera injected conjunctiva clear, ENT: Nares clear, no rhinorrhea or epistaxis. Mucous membranes moist. NECK: Supple. no lymphadenopathy CHEST: Clear to auscultation. No respiratory distress.SAO2 99% on room air HEART: Regular rate and rhythm. No murmur heard. Normal peripheral pulses. SKIN: Warm, dry, no rash. NEURO: No focal deficits. Alert and oriented x3. Course Course Emergency Course: Patient is aware of diagnosis, understands and agrees to treatment plan. Anticipatory guidance given. Patient agrees to follow-up as directed and is aware of reasons to seek care at the emergency department. Portions of this record may have been created with voice recognition software Level of Care: Express Care Visit Vital Signs Vital signs: Vital Signs Temperature 36.6 C 05/08/25 10:08 Pulse Rate 103 H 05/08/25 10:08 Respiratory Rate 18 05/08/25 10:08 Blood Pressure 140/69 05/08/25 10:08 Pulse Oximetry 99 05/08/25 10:08 Oxygen Delivery Room Air 05/08/25 10:08 Temperature 36.6 C 05/08/25 10:08 Pulse Rate 103 H 05/08/25 10:08 Respiratory Rate 18 05/08/25 10:08 Blood Pressure 140/69 05/08/25 10:08 Pulse Oximetry 99 05/08/25 10:08 Oxygen Delivery Room Air 05/08/25 10:08 Reviewed MDM - Eye Problem MDM Narrative Medical decision making narrative: Consideration of the following conditions may be warranted for the presenting problem, they are not final diagnoses: Bacterial conjunctivitis, allergic conjunctivitis, viral conjunctivitis, foreign body, blepharitis, chalazion, hordeolum, corneal abrasion.? Exam findings show no acute concerns or changes; patient is non-toxic appearing and is in no distress.? Patient is appropriate for outpatient treatment and follow-up. Differential Diagnosis Differential diagnosis: Likely conjunctivitis and other (Stye right lower eyelid, swelling of right lower eyelid, right eye irritation) Medical Records Attestation: I reviewed the patient's medical records. Critical Care Time Critical Care Time Critical Care Time: No Discharge Plan Discharge Clinical Impression: Hordeolum externum of right lower eyelid Patient Disposition: Home Condition: Stable Instructions: Antibiotic Miach Patricia (ED) Additional Instructions: Cold compresses to the eyes for comfort May need warm compresses to remove debris in the morning When cleaning the eyes used a washcloth in one direction then change washcloths or use a cotton ball in one direction and then his cotton balls Eyedrops as directed--may be more soothing if left in the refrigerator Do not share medicine--do not touch the eye with the medicine Tylenol or ibuprofen for pain Avoid screen time--television, computer, tablet or phone. Also no reading or driving Follow-up with PCP or cloth shader as directed if no improvement in 48 hours If your symptoms persist, change or worsen significantly before you can contact your personal physician then please, without delay, go to the emergency department for further evaluation. Follow-up with PCP in 7-10 days or sooner if needed Follow up with PCP soon in regards to your blood pressure which is elevated above threshold for referral. Blood pressure above 120/80 may indicate pre-hypertension. 140/69 some systolic elevation Patient Language: Afghan Prescriptions: New ofloxacin 0.3 % drops See Rx Instructions .ROUTE .COMPLEX Qty: 10 0RF Rx Instructions: put 1-2 drps into affected eye(s) every 2-4 h x 2 days, then 1-2 drps 4 times/day days 3-7 No Action metformin 500 mg tablet lisinopril 5 mg tablet Trulicity 1.5 mg/0.5 mL pen injector SUBCUT meloxicam [Mobic] 7.5 mg tablet 7.5 mg PO DAILY Qty: 30 0RF Follow-up/Referrals: Moody Tidwell MD [Primary Care Provider, [facility]] Time of Disposition: 10:51 Quality Alfonso Coma Scale Eyes: Open Verbal: Oriented and Alert Motor: Follows Commands Alfonso Coma Total Score: 15
== END 2025-05-08 11:00 | disposition home or self-care (01) ==
PROVIDERS: Emergency Provider Registered Nurse; PCP Emergency Medicine
DX: H00.012 Hordeolum externum right lower eyelid (principal); I10 Essential (primary) hypertension; E11.9 Type 2 diabetes mellitus without complications; Z79.84 Long term (current) use of oral hypoglycemic drugs
CPT/HCPCS: 99213; G0463